=== PATIENT | female | born 1990 | race American Indian/Alaskan Native ===

== ENCOUNTER 2017-02-15 03:42 | Day surgery (SDC) | payer OTHER ==
[2017-02-15 03:48] VITALS: BMI 32.2
[2017-02-15] MEDS ORDERED: Sodium Chloride 0.9% 1,000 ML IV STA (03:59)
[2017-02-15] MEDS ORDERED: Morphine 2 mg/ml ISec IVP STA (03:59)
--- NOTE | 2017-02-15 04:03 | ED PDOC ---
Arrival/HPI <Antione Prajapati - Last Filed: 02/15/17 15:09> - General Historian: Patient - History of Present Illness Time/Duration: 4-6 hours Symptom Onset: Gradual Symptom Course: Unchanged Severity Level: Mild Activities at Onset: Light <Melinda Wild - Last Filed: 02/19/17 11:08> - General Chief Complaint: Abdominal Pain Time Seen by Provider: 02/15/17 03:50 - History of Present Illness Narrative History of Present Illness (Text): 02/15/17 03:59 Demi Argueta is a 26 year old female, with a history of asthma, presents to the emergency department complaining of diffuse abdominal pain associated with multiple bouts of vomiting and chills since 11 pm last night. States that pain radiates to the R flank area. Patient ate dinner at 7 p.m which consisted of rice and oxtail. Denies any fever, chills, headache, dizziness, difficulty breathing, diarrhea, or any other complaints at this time. (Melinda Wild) Past Medical History - Provider Review Nursing Documentation Reviewed: Yes - Infectious Disease Hx of Infectious Diseases: None - Pulmonary Hx Asthma: Yes - Psychiatric Hx Substance Use: No - Anesthesia Hx Anesthesia: No <Melinda Wild - Last Filed: 02/19/17 11:08> Family/Social History - Physician Review Nursing Documentation Reviewed: Yes Family/Social History: No Known Family HX Smoking Status: Never Smoked Hx Alcohol Use: No Hx Substance Use: No <Melinda Wild - Last Filed: 02/19/17 11:08> Allergies/Home Meds <Antione Prajapati - Last Filed: 02/15/17 15:09> <Melinda Wild - Last Filed: 02/19/17 11:08> Allergies/Adverse Reactions: Allergies No Known Allergies Allergy (Unverified 02/15/17 03:59) Home Medications: Home Meds Medication Instructions Recorded Confirmed Ethinyl Estradiol/Drospirenone 1 tab PO DAILY 02/15/17 02/15/17 [Vestura 3 mg-0.02 mg] Review of Systems - Physician Review All systems were reviewed & negative as marked: Yes - Review of Systems Constitutional: Normal. absent: Fatigue, Fevers Respiratory: Normal. absent: SOB, Cough, Sputum Cardiovascular: Normal. absent: Chest Pain Gastrointestinal: Abdominal Pain, Nausea, Vomiting. absent: Diarrhea Genitourinary Female: Normal. absent: Dysuria Musculoskeletal: Back Pain (R side) Neurological: Normal. absent: Headache, Dizziness Psychiatric: Normal <Melinda Wild Last Filed: 02/19/17 11:08> Physical Exam Vital Signs Reviewed: Yes Temperature: Afebrile Blood Pressure: Normal Pulse: Regular Respiratory Rate: Normal Appearance: Positive for: Non-Toxic, Uncomfortable (due to pain) Pain Distress: Moderate Mental Status: Positive for: Alert and Oriented X 3 - Systems Exam Head: Present: Atraumatic, Normocephalic Pupils: Present: PERRL Conjunctiva: Present: Other (mild conjunctival pallor ) Mouth: Present: Moist Mucous Membranes. No: Dry Pharnyx: Present: Normal. No: ERYTHEMA, EXUDATE, TONSILS ENLARGED Respiratory/Chest: Present: Clear to Auscultation, Good Air Exchange. No: Respiratory Distress, Accessory Muscle Use Cardiovascular: Present: Regular Rate and Rhythm, Normal S1, S2. No: Murmurs Abdomen: Present: Tenderness (tender to palpation RUQ>RLQ), Normal Bowel Sounds. No: Distention, Peritoneal Signs Back: Present: Normal Inspection. No: CVA Tenderness, Midline Tenderness, Paraspinal Tenderness Neurological: Present: GCS=15, CN II-XII Intact, Speech Normal Skin: Present: Warm, Dry, Normal Color. No: Rashes Psychiatric: Present: Alert, Oriented x 3, Normal Insight, Normal Concentration <Melinda Wild - Last Filed: 02/19/17 11:08> Vital Signs Temp Pulse Resp BP Pulse Ox 02/15/17 15:01 97.8 F 52 L 18 123/71 98 02/15/17 10:01 50 L 16 109/63 100 02/15/17 06:40 54 L 16 115/39 L 100 02/15/17 05:10 16 02/15/17 04:40 97.6 F 52 L 18 118/73 100 02/15/17 03:55 59 L 16 135/55 L 100 Medical Decision Making <Antione Prajapati L - Last Filed: 02/15/17 15:09> <Melinda Wild - Last Filed: 02/19/17 11:08> ED Course and Treatment: 02/15/17 04:08 Impression: A 26 year old female who presents to the emergency department complaining of abdominal pain associated with nausea and vomiting since 11 pm. Differential Diagnosis include but are not limited to: Gastritis vs. gastroenteritis vs. Cholecystitis. Plan: -- Labs, Lipase -- Pepcid -- Morphine -- Zofran -- IV fluids -- HCG -- Urinalysis -- Reassess and disposition Progress Notes: 02/15/17 04:10 (Melinda Wild) - Lab Interpretations Lab Results: 02/16/17 07:45 02/16/17 07:45 Lab Results 02/16/17 07:45: Sodium 137, Potassium 3.8, Chloride 107, Carbon Dioxide 23, Anion Gap 11, BUN 8, Creatinine 0.7, Est GFR ( Amer) > 60, Est GFR (Non- Af Amer) > 60, Random Glucose 88, Calcium 8.7, Total Bilirubin 0.5, AST 75 H, ALT 96 H, Alkaline Phosphatase 91, Total Protein 6.8, Albumin 3.2, Globulin 3.6 , Albumin/Globulin Ratio 0.9 L 02/16/17 07:45: APTT 26.8 02/16/17 07:45: WBC 7.2, RBC 4.58, Hgb 9.8 L, Hct 29.3 L, MCV 64.0 L, MCH 21.4 L , MCHC 33.4, RDW 15.3 H, Plt Count 219, MPV 9.8, Gran % 65.4, Lymph % (Auto) 28.5, [place] % (Auto) 5.7, Eos % (Auto) 0.1 L, Baso % (Auto) 0.3, Gran # 4.69, Lymph # 2.0, [place] # 0.4, Eos # 0.0, Baso # 0.02 02/15/17 04:30: WBC 6.1, RBC 5.17, Hgb 11.1 L, Hct 33.0 L, MCV 63.8 L, MCH 21.5 L, MCHC 33.6, RDW 15.8 H, Plt Count 236, MPV 11.2 H, Gran % 68.3 H, Lymph % ( Auto) 26.6, [place] % (Auto) 3.6, Eos % (Auto) 1.0 L, Baso % (Auto) 0.5, Gran # 4.14, Lymph # 1.6, [place] # 0.2, Eos # 0.1, Baso # 0.03 02/15/17 04:30: Sodium 136, Potassium 4.5, Chloride 105, Carbon Dioxide 23, Anion Gap 13, BUN 14, Creatinine 0.7, Est GFR ( Amer) > 60, Est GFR (Non- Af Amer) > 60, Random Glucose 150 H, Calcium 9.5, Total Bilirubin 0.6, AST 55 H , ALT 69 H, Alkaline Phosphatase 103, Total Protein 8.1, Albumin 4.2, Globulin 4.0, Albumin/Globulin Ratio 1.1, Amylase 162 H, Lipase 72 02/15/17 04:30: PT 10.7, INR 0.99, APTT 26.3 02/15/17 03:40: Urine Color Yellow, Urine Appearance Sl cloudy, Urine pH 5.5, Ur Specific [place] >= 1.030, Urine Protein 30 H, Urine Glucose (UA) Negative, Urine Ketones Negative, Urine Blood Moderate H, Urine Nitrate Negative, Urine Bilirubin Negative, Urine Urobilinogen 0.2, Ur Leukocyte Esterase Negative, Urine RBC 5 - 10, Urine WBC 0 - 2, Ur Epithelial Cells 1 - 3, Urine Bacteria Mod , Urine HCG, Qual Negative - RAD Interpretation Radiology Orders: 02/15/17 05:04 ABD & PELVIS W/O PO OR IV CONT [CT] Stat 02/15/17 06:12 ABDOMEN COMPLETE [US] Stat 02/15/17 07:18 BILIARY SCAN (HIDA) [NM] Stat 02/15/17 16:49 CHOLANGIOGRAM OPERATIVE [RAD] Routine - Medication Orders Current Medication Orders: Discontinued Medications Acetaminophen (Tylenol 325mg Tab) 650 mg PO Q6H PRN PRN Reason: Pain, Mild (1-3) Bupivacaine HCl (Marcaine 0.5%) Confirm Administered Dose 30 ml .ROUTE .STK-MED ONE Stop: 02/15/17 16:37 Last Admin: 02/15/17 16:47 Dose: 19 ml Bupivacaine HCl (Marcaine 0.5%) Confirm Administered Dose 30 ml .ROUTE .STK-MED ONE Stop: 02/15/17 15:19 Cefazolin Sodium (Ancef) Confirm Administered Dose 1 gm .ROUTE .STK-MED ONE Stop: 02/15/17 16:37 Last Admin: 02/15/17 16:40 Dose: 2 gm Cefazolin Sodium (Ancef) Confirm Administered Dose 1 gm .ROUTE .STK-MED ONE Stop: 02/15/17 16:37 Cefazolin Sodium (Ancef) Confirm Administered Dose 1 gm .ROUTE .STK-MED ONE Stop: 02/15/17 15:19 Famotidine (Pepcid) 20 mg IVP STAT STA Stop: 02/15/17 04:00 Last Admin: 02/15/17 04:34 Dose: 20 mg Fentanyl (Fentanyl) Confirm Administered Dose 100 mcg .ROUTE .STK-MED ONE Stop: 02/15/17 16:31 Fentanyl (Fentanyl) Confirm Administered Dose 100 mcg .ROUTE .STK-MED ONE Stop: 02/15/17 17:49 Glycopyrrolate (Robinul) Confirm Administered Dose 0.2 mg .ROUTE .STK-MED ONE Stop: 02/15/17 17:26 Glycopyrrolate (Robinul) Confirm Administered Dose 0.2 mg .ROUTE .STK-MED ONE Stop: 02/15/17 17:26 Heparin Sodium (Porcine) (Heparin) 5,000 units SC Q12 MARY LOU PRN Reason: Protocol Last Admin: 02/16/17 10:27 Dose: 5,000 units Hydromorphone HCl (Dilaudid) 0.5 mg IVP Q4H PRN PRN Reason: Pain, severe (8-10) Last Admin: 02/15/17 20:01 Dose: 0.5 mg Re-Assess: CHRISTOPHE Pain Assessment Document 02/15/17 21:01 SD (Rec: 02/15/17 21:12 SD [email or web address]) Pain Reassessment Is this a pain reassessment? Yes Sleep Is patient sleeping during reassessment? No Presence of Pain Presence of Pain No Pain Scale Used Pain Scale Used Numeric Sodium Chloride (Sodium Chloride 0.9%) 1,000 mls @ 999 mls/hr IV .Q1H1M STA Stop: 02/15/17 04:59 Last Admin: 02/15/17 04:30 Dose: 999 mls/hr Metronidazole (Flagyl) 500 mg in 100 mls @ 100 mls/hr IVPB STAT STA PRN Reason: Protocol Stop: 02/15/17 07:11 Last Admin: 02/15/17 07:18 Dose: 100 mls/hr Ceftriaxone Sodium (Rocephin 1 Gram Ivpb) 1 gm in 100 mls @ 200 mls/hr IV ONCE STA PRN Reason: Protocol Stop: 02/15/17 06:40 Last Admin: 02/15/17 06:27 Dose: 200 mls/hr Lactated Ringer's (Lactated Ringer's) 1,000 mls @ 75 mls/hr IV .[id number] MARY LOU Stop: 02/15/17 18:00 Sodium Chloride (Sodium Chloride 0.9%) 1,000 mls @ 100 mls/hr IV .Q10H [facility] Stop: 02/16/17 12:00 Last Admin: 02/15/17 20:30 Dose: 100 mls/hr Iohexol (Omnipaque 240 (50 Ml)) Confirm Administered Dose 50 ml .ROUTE .STK-MED ONE Stop: 02/15/17 16:37 Last Admin: 02/15/17 17:17 Dose: 10 ml Iohexol (Omnipaque 240 (50 Ml)) Confirm Administered Dose 50 ml .ROUTE .STK-MED ONE Stop: 02/15/17 15:19 Ketorolac Tromethamine (Toradol) 30 mg IVP STAT STA Stop: 02/15/17 05:06 Last Admin: 02/15/17 05:06 Dose: 30 mg Re-Assess: CHRISTOPHE Pain Assessment Document 02/15/17 06:06 YP (Rec: 02/15/17 06:16 YP [id number]) Pain Reassessment Is this a pain reassessment? Yes Sleep Is patient sleeping during reassessment? No Presence of Pain Presence of Pain No Levalbuterol HCl (Xopenex) Confirm Administered Dose 1.25 mg .ROUTE .STK-MED ONE Stop: 02/15/17 18:23 Levalbuterol HCl (Xopenex) 0.63 mg IH T5HCPOC PRN PRN Reason: Shortness of Breath Last Admin: 02/16/17 12:26 Dose: 0.63 mg Lidocaine (Lidocaine (Bolus)) Confirm Administered Dose 100 mg IV .STK-MED ONE Stop: 02/15/17 16:31 Metoclopramide HCl (Reglan) 10 mg IV ONCE PRN PRN Reason: Nausea/Vomiting Midazolam HCl (Versed Inj) Confirm Administered Dose 2 mg .ROUTE .STK-MED ONE Stop: 02/15/17 16:31 Morphine Sulfate (Morphine) 2 mg IVP STAT STA Stop: 02/15/17 04:00 Last Admin: 02/15/17 04:31 Dose: 2 mg Re-Assess: [facility] Pain Assessment Document 02/15/17 05:31 YP (Rec: 02/15/17 06:16 YP [id number]) Pain Reassessment Is this a pain reassessment? Yes Sleep Is patient sleeping during reassessment? No Presence of Pain Presence of Pain No Morphine Sulfate (Morphine) 4 mg IVP STAT STA Stop: 02/15/17 11:01 Last Admin: 02/15/17 11:07 Dose: 4 mg Morphine Sulfate (Morphine) 2 mg IVP Q15M PRN PRN Reason: Pain, moderate (4-7) Last Admin: 02/16/17 05:31 Dose: 2 mg Re-Assess: [facility] Pain Assessment Document 02/16/17 06:31 SD (Rec: 02/16/17 07:00 SD [email or web address]) Pain Reassessment Is this a pain reassessment? Yes Sleep Is patient sleeping during reassessment? Yes Neostigmine Methylsulfate (Neostigmine Methylsulfate) Confirm Administered Dose 3 mg IV .STK-MED ONE Stop: 02/15/17 17:37 Ondansetron HCl (Zofran Inj) 4 mg IVP STAT STA Stop: 02/15/17 04:00 Last Admin: 02/15/17 04:30 Dose: 4 mg Ondansetron HCl (Zofran Inj) 4 mg IVP ONCE PRN PRN Reason: Nausea/Vomiting Ondansetron HCl (Zofran Inj) Confirm Administered Dose 8 mg .ROUTE .STK-MED ONE Stop: 02/15/17 16:32 Oxycodone/Acetaminophen (Percocet 5/325 Mg Tab) 1 tab PO Q4H PRN PRN Reason: Pain, moderate (4-7) Stop: 02/18/17 18:17 Last Admin: 02/15/17 19:10 Dose: 1 tab Re-Assess: [facility] Pain Assessment Document 02/15/17 20:10 SD (Rec: 02/15/17 21:12 SD [email or web address]) Pain Reassessment Is this a pain reassessment? Yes Sleep Is patient sleeping during reassessment? No Presence of Pain Presence of Pain No Pain Scale Used Pain Scale Used Numeric Oxycodone/Acetaminophen (Percocet 5/325 Mg Tab) Confirm Administered Dose 1 tab .ROUTE .STK-MED ONE Stop: 02/15/17 19:10 Pantoprazole Sodium (Protonix Ec Tab) 40 mg PO 0630 MARY LOU Last Admin: 02/16/17 05:34 Dose: 40 mg Pneumococcal Polyvalent Vaccine (Pneumovax 23 Vaccine) 0.5 ml IM .ONCE ONE Stop: 02/15/17 22:19 Propofol (Diprivan) Confirm Administered Dose 400 mg .ROUTE .STK-MED ONE Stop: 02/15/17 16:31 Rocuronium [place] (Zemuron) Confirm Administered Dose 50 mg .ROUTE .STK-MED ONE Stop: 02/15/17 16:31 ED OBSERVATION <Antione Prajapati - Last Filed: 02/15/17 15:09> Date of observation admission: 02/15/17 Time of observation admission: 03:50 <Melinda Wild - Last Filed: 02/19/17 11:08> - Observation admission statement Patient is being placed in observation because:: Abdominal pain (Melinda Wild) - Goals of Observation Goals of observation are:: Pending Labs, imaging, reevaluation and disposition (Melinda Wild) - Progress Note Progress Note: 02/15/17 07:15 Case signed out to me from overnight by Dr. Wild, pending imaging, reevaluation and disposition. 02/15/17 08:00 Patient resting in bed comfortable, awaiting scan. 02/15/17 10:10 On reevaluation, the patient states currently her pain in controlled. Abdominal examination remains unchanged. Patient will get HIDA scan at noon. 02/15/17 11:00 On reevaluation, the patient is complaining of pain, will give Morphine 4mg. 02/15/17 14:[address] Kurtz who will come to evaluate patient. Case discussed with the surgical tech who will come and evaluate patient. 02/15/17 15:09 Patient was seen and evaluated by Dr. Hutson who will take her to [facility]. Patient was admitted under his service. (Antione Prajapati) 02/15/17 05:05 On reevaluation, patient states pain has not improved. Will order Toradol 02/15/17 05:30 EXAM: CT Abdomen and Pelvis Without Intravenous Contrast FINDINGS: Lower thorax: No acute findings. ABDOMEN: Liver: Unremarkable. Gallbladder and bile ducts: Unremarkable. No calcified stones. No ductal dilation. Pancreas: Unremarkable. No ductal dilation. Spleen: Unremarkable. No splenomegaly. Adrenals: Unremarkable. No mass. Kidneys and ureters: Unremarkable. No obstructing stones. No hydronephrosis. Stomach and bowel: Much of the colon this collapsed or contracted. Question of slight colonic wall thickening beginning in the transverse colon No obstruction. Appendix: Question of partial visualization of a normal appendix. PELVIS: Bladder: Unremarkable. No stones. Reproductive: Unremarkable as visualized. ABDOMEN and PELVIS: Intraperitoneal space: Trace fluid in the pelvis consistent with physiologic amount. No free air. Bones/joints: No acute fracture. No dislocation. Soft tissues: Unremarkable. Vasculature: Unremarkable. No abdominal aortic aneurysm. Lymph nodes: Unremarkable. No enlarged lymph nodes. IMPRESSION: 1. Much of the colon is collapsed or contracted. There is question of minimal nonspecific colitis extending distal to to the proximal transverse colon. 2. Otherwise negative CT abdomen/pelvis. No renal or ureteral calculi are evident and there is no evidence of obstructive uropathy. 02/15/17 06:10 Patient is reporting improvement in pain. She still has tenderness, mainly in the RUQ. CT negative. Will obtain sono of the abdomen to r/o cholecystitis. Will give her antibiotics for colitis, based on CT reading. 02/15/17 07:16 Prelim sono result is read as gallstones with ttp in the RUQ - will need additional workup - endorsed to Dr. Prajapati. 02/15/17 07:18 HIDA scan ordered. (Melinda Wild) <Antione Prajapati - Last Filed: 02/15/17 15:09> - Scribe Statement The provider has reviewed the documentation as recorded by the Scribe <Melinda Wild - Last Filed: 02/19/17 11:08> - Scribe Statement Aly Pineda (Melinda Wild) Provider Attestation: All medical record entries made by the Scribe were at my direction and personally dictated by me. I have reviewed the chart and agree that the record accurately reflects my personal performance of the history, physical exam, medical decision making, and the department course for this patient. I have also personally directed, reviewed, and agree with the discharge instructions and disposition. (Melinda Wild) Disposition/Present on Arrival - Present on Arrival Any Indicators Present on Arrival: No - Disposition Have Diagnosis and Disposition been Completed?: Yes Disposition Time: 15:10 Patient Plan: Admission <Antione Prajapati - Last Filed: 02/15/17 15:09> - Present on Arrival History of DVT/PE: No History of Uncontrolled Diabetes: No Urinary Catheter: No History of Decub. Ulcer: No History Surgical Site Infection Following: None <Melinda Wild - Last Filed: 02/19/17 11:08> - Disposition Diagnosis: Cholecystitis Disposition: HOSPITALIZED Condition: STABLE
[2017-02-15 04:34] LABS: PH,URINE 5.5 (4.7-8.0); URINE BILIRUBIN NEGATIVE (NEGATIVE); URINE BLOOD MODERATE (NEGATIVE); URINE GLUCOSE (UA) NEGATIVE (NEGATIVE); URINE KETONE NEGATIVE (NEGATIVE); URINE LEUKOCYTE ESTERASE NEGATIVE Leu/uL (NEGATIVE); URINE PROTEIN 30 mg/dL (<30 mg/dL); URINE UROBILINOGEN 0.2 E.U./dL (<1 E.U./dL)
[2017-02-15 04:46] LABS: URINE APPEARANCE SL CLOUDY (CLEAR); URINE COLOR YELLOW (YELLOW)
[2017-02-15 04:51] LABS: URINE WBC 0 - 2 /hpf (0-6)
[2017-02-15 04:51] LABS: ADD MANUAL DIFF? NO
[2017-02-15 04:52] LABS: URINE BACTERIA MOD (NEG)
[2017-02-15 05:01] LABS: INR 0.99 (0.93-1.08); MEAN CELL VOLUME 63.8 fL (80.0-105.0); PARTIAL THROMBOPLASTIN TIME 26.3 Seconds (23.7-30.8); WHITE BLOOD COUNT 6.1 10^3/ul (4.5-11.0)
[2017-02-15 05:02] LABS: BASO # 0.03 K/mm3 (0.0-2.0); BASO % 0.5 % (0.0-3.0); EOS # 0.1 (0.0-0.7); GRAN # 4.14 (1.4-6.5); GRAN % 68.3 % (50.0-68.0); LYMPH # 1.6 (1.2-3.4); LYMPH % 26.6 % (22.0-35.0); MEAN CORPUSCULAR HEMOGLOBIN 21.5 pg (25.0-35.0); MEAN CORPUSCULAR HGB CONC 33.6 g/dl (31.0-37.0); MEAN PLATELET VOLUME 11.2 fl (7.0-11.0); MONO # 0.2 (0.1-0.6); MONO % 3.6 % (1.0-6.0); PLATELET COUNT 236 10^3/uL (120.0-450.0); RED CELL DISTRIBUTION WIDTH 15.8 % (11.5-14.5)
[2017-02-15 05:06] LABS: ALB/GLOB RATIO 1.1 (1.1-1.8); ALKALINE PHOSPHATASE 103 U/L (38-133); ALT/SGPT 69 U/L (7-56); AMYLASE 162 U/L (35-125); AST/SGOT 55 U/L (15-39); BILIRUBIN,TOTAL 0.6 mg/dL (0.2-1.3); BLOOD UREA NITROGEN 14 mg/dL (7-21); CALCIUM 9.5 mg/dL (8.4-10.5); CARBON DIOXIDE 23 mmol/L (21-33); CHLORIDE 105 mmol/L (98-107); GFR AFRICAN-AMERICAN > 60; GLUCOSE,RANDOM 150 mg/dL (70-110); LIPASE 72 U/L (23-300); POTASSIUM 4.5 mmol/L (3.6-5.0); SODIUM 136 mmol/L (132-148); TOTAL PROTEIN 8.1 g/dL (5.8-8.3)
[2017-02-15] MEDS ORDERED: cefTRIAXone 1 gm 1 GM/100 ML BAG IV STA (06:11)
[2017-02-15] MEDS ORDERED: metroNIDAZOLE IV 500 mg/100 ml 500 MG/100 ML BAG IVPB STA (06:12)
--- NOTE | 2017-02-15 09:40 | CT ---
PROCEDURE: CT Abdomen and Pelvis without intravenous contrast HISTORY: abd pain; R flank pain COMPARISON: None. TECHNIQUE: Without contrast. Contrast Dose: Radiation dose: Total exam DLP = 751 mGy-cm. This CT exam was performed using one or more of the following dose reduction techniques: Automated exposure control, adjustment of the mA and/or kV according to patient size, and/or use of iterative reconstruction technique. FINDINGS: LOWER THORAX: Unremarkable. LIVER: Unremarkable. No gross lesion or ductal dilatation. GALLBLADDER AND BILE DUCTS: Unremarkable. PANCREAS: Unremarkable. No gross lesion or ductal dilatation. SPLEEN: Unremarkable. ADRENALS: Unremarkable. No mass. KIDNEYS AND URETERS: Unremarkable. No hydronephrosis. No solid mass. VASCULATURE: Unremarkable. No aortic aneurysm. BOWEL: Unremarkable. No obstruction. No gross mural thickening. APPENDIX: Unremarkable. Normal appendix. PERITONEUM: Minimal free fluid LYMPH NODES: Unremarkable. No enlarged lymph nodes. BLADDER: Unremarkable. REPRODUCTIVE: Unremarkable. BONES: No acute fracture. OTHER FINDINGS: The report concurs with the preliminary [facility] report IMPRESSION: No acute findings
--- NOTE | 2017-02-15 09:57 | US ---
HISTORY: upper abd pain - r/o cholecystitis COMPARISON: CT abdomen and pelvis performed the same day TECHNIQUE: Sonographic evaluation of the abdomen. FINDINGS: LIVER: Measures 15.6 cm. Normal echogenicity of the liver parenchyma. No mass. No intrahepatic bile duct dilatation. GALLBLADDER: There are multiple gallstones. No wall thickening, pericholecystic fluid or positive sonographic Lama's sign. COMMON BILE DUCT: Measures 5.0 mm. No stones. No dilatation. PANCREAS: Unremarkable as visualized. No mass. No ductal dilatation. RIGHT KIDNEY: Measures 11.0cm. Normal echogenicity. No calculus, mass, or hydronephrosis. LEFT KIDNEY: Measures 11.0cm. Normal echogenicity. No calculus, mass, or hydronephrosis. SPLEEN: Normal in size and contour. No mass. AORTA: No aneurysmal dilatation. IVC: Unremarkable. OTHER FINDINGS: None. IMPRESSION: Cholelithiasis. No evidence of acute cholecystitis.
[2017-02-15] MEDS ORDERED: Morphine 4 mg/ml ISec IVP STA (11:00)
--- NOTE | 2017-02-15 12:14 | NM ---
PROCEDURE: Nuclear Medicine Hepatobiliary Scan HISTORY: gallstones; RUQ pain - r/o cholecystitis COMPARISON: None available. TECHNIQUE: 5.2 mCi of technetium 99m Mebrofenin was administered intravenously. Planar images of the abdomen were obtained at 5 min intervals to 60 mins. Delayed images were also obtained. FINDINGS: LIVER: Timely and homogenous uptake. COMMON BILE DUCT: identified at 30 mins. GALLBLADDER: Not visualized even on 4 hour delayed images SMALL BOWEL: Identified at 60 mins. IMPRESSION: Nonvisualization of the gallbladder consistent with cystic duct obstruction
--- NOTE | 2017-02-15 14:21 | CP.PCM.CON ---
<Elly Collado - Last Filed: 02/15/17 15:22> History of Present Illness - History of Present Illness History of Present Illness: General Surgery Dr. Kurtz HPI: 26 y/o F w/ PMHx of asthma presents to the ED w/ CC of RUQ abd pain. Pain began around 11pm after dinner of oxtail, rice, and beans. Pt has never before had this pain. Low throbbing pain is constant w/ waves of increasing intensity. During intense waves, pain radiates to back and R shoulder. Pt reports NBNB vomiting x3 shortly after pain began. Vomiting made abd pain worse. Heating pad and meds given in ED made pain better. Pt admits to nausea which comes in waves , dizziness which began after vomiting, and weakness which pt attributes to lack of PO intake and no sleep. Denies F/C, SOB, CP, D/C. PMHx: asthma, obese Meds: reviewed NKDA PSHx: denies SHx: denies Tobacco, drug use. occasional EtOH use FHx: diabetes - mother Review of Systems - Review of Systems All systems: reviewed and no additional remarkable complaints except (see HPI) Past Patient History - Infectious Disease Hx of Infectious Diseases: None - Past Social History Smoking Status: Never Smoked - PULMONARY Hx Asthma: Yes - PSYCHIATRIC Hx Substance Use: No - SURGICAL HISTORY Hx Surgeries: No - ANESTHESIA Hx Anesthesia: No Meds Allergies/Adverse Reactions: Allergies Allergy/AdvReac Type Severity Reaction Status Date / Time No Known Allergies Allergy Unverified 02/15/17 03:59 Physical Exam - Constitutional Appears: Non-toxic, No Acute Distress - Head Exam Head Exam: NORMAL INSPECTION - Eye Exam Eye Exam: Normal appearance - ENT Exam ENT Exam: Mucous Membranes Moist - Respiratory Exam Respiratory Exam: Clear to Auscultation Bilateral, NORMAL BREATHING PATTERN. absent: Accessory Muscle Use, Respiratory Distress - Cardiovascular Exam Cardiovascular Exam: REGULAR RHYTHM. absent: Bradycardia, Tachycardia - GI/Abdominal Exam GI & Abdominal Exam: Diminished Bowel Sounds, Guarding (voluntary), Soft, Tenderness (TTP RUQ). absent: Distended, Firm, Rebound - Extremities Exam Extremities exam: Positive for: normal inspection. Negative for: pedal edema, tenderness - Neurological Exam Neurological exam: Alert, Oriented x3 - Psychiatric Exam Psychiatric exam: Normal Affect, Normal Mood - Skin Skin Exam: Dry, Intact, Normal Color, Warm Results - Vital Signs Recent Vital Signs: Last Vital Signs Temp 97.6 F 02/15/17 04:40 Pulse 50 L 02/15/17 10:01 Resp 16 02/15/17 10:01 BP 109/63 02/15/17 10:01 Pulse Ox 100 02/15/17 10:01 - Labs Result Diagrams: 02/15/17 04:30 02/15/17 04:30 Labs: Laboratory Results - last 24 hr 02/15/17 02/15/17 02/15/17 04:30 04:30 04:30 WBC 6.1 RBC 5.17 Hgb 11.1 L Hct 33.0 L MCV 63.8 L MCH 21.5 L MCHC 33.6 RDW 15.8 H Plt Count 236 MPV 11.2 H Gran % 68.3 H Lymph % (Auto) 26.6 [place] % (Auto) 3.6 Eos % (Auto) 1.0 L Baso % (Auto) 0.5 Gran # 4.14 Lymph # 1.6 [place] # 0.2 Eos # 0.1 Baso # 0.03 PT 10.7 INR 0.99 APTT 26.3 Sodium 136 Potassium 4.5 Chloride 105 Carbon Dioxide 23 Anion Gap 13 BUN 14 Creatinine 0.7 Est GFR ( Amer) > 60 Est GFR (Non-Af Amer) > 60 Random Glucose 150 H Calcium 9.5 Total Bilirubin 0.6 AST 55 H ALT 69 H Alkaline Phosphatase 103 Total Protein 8.1 Albumin 4.2 Globulin 4.0 Albumin/Globulin Ratio 1.1 Amylase 162 H Lipase 72 - Imaging and Cardiology US - abdomen Status: Image reviewed by me, Report reviewed by me CT scan - abdomen Status: Image reviewed by me, Report reviewed by me HIDA Status: Image reviewed by me, Report reviewed by me Assessment & Plan - Assessment and Plan (Free Text) Assessment: 26 y/o F w/ RUQ pain likely 2/2 biliary cholic vs acute cholecystitis - NPO, IVF - pain management - anti-emetic - OR today for lap samson w/ IOC Pt seen and discussed w/ Dr. Tessie Collado DO PGY1 <Darrin Kurtz - Last Filed: 02/21/17 12:44> Results - Vital Signs Recent Vital Signs: Last Vital Signs Temp 98.8 F 02/16/17 12:12 Pulse 56 L 02/16/17 12:12 Resp 19 02/16/17 12:12 BP 118/80 02/16/17 12:12 Pulse Ox 97 02/16/17 12:12 - Labs Result Diagrams: 02/16/17 07:45 02/16/17 07:45 Assessment & Plan - Assessment and Plan (Free Text) Assessment: Patient was seen and examined by me. I agree with assessment and plan as per resident's note. - Date & Time Date: 02/15/17 Time: 16:20
[2017-02-15] MEDS ORDERED: Bupivacaine 0.5% Inj(30mL) ONE ×2 (15:18→16:36)
[2017-02-15] MEDS ORDERED: Iohexol 240 (50 ml) ONE ×2 (15:18→16:36)
[2017-02-15] MEDS ORDERED: Morphine 2 mg/ml ISec IVP PRN (15:59)
[2017-02-15] MEDS ORDERED: Lactated Ringer's 1,000 ML IV SCH (15:59)
[2017-02-15] MEDS ORDERED: Rocuronium 10 mg/ml (5 ml) ONE (16:30)
[2017-02-15] MEDS ORDERED: Midazolam 2 MG/2 ML VIAL ONE (16:30)
[2017-02-15] MEDS ORDERED: Propofol 10 mg/ml Inj (20 ML) ONE (16:30)
[2017-02-15] MEDS ORDERED: Glycopyrrolate 0.2 mg/ml (2ml vial) ONE (17:25)
[2017-02-15] MEDS ORDERED: Neostigmine Methylsulfate 3mg/3ml Syringe IV ONE (17:36)
[2017-02-15] MEDS ORDERED: HYDROmorphone 0.5 mg/0.5 ml ISec IVP PRN (18:12)
[2017-02-15] MEDS ORDERED: Oxycodone/Acetaminophen 5/325 mg Tab PO PRN (18:16)
[2017-02-15] MEDS ORDERED: Levalbuterol 1.25 MG/3 ML Inhal Soln UD ONE (18:22)
[2017-02-15] MEDS ORDERED: Levalbuterol 0.63 MG/3 ML Inhal Soln UD IH PRN (18:35)
--- NOTE | 2017-02-15 18:38 | PCM.SURG1 ---
Surgeon's Initial Post Op Note - Surgeon's Notes Surgeon: Dr. Kurtz Industrial Laborer: Dr. Ruiz PGY2, Dr. Collado PGY1 Type of Anesthesia: General Endo Pre-Operative Diagnosis: acute cholecystitis Operative Findings: see dictation Post-Operative Diagnosis: same Operation Performed: laparoscopic cholecystectomy w/ IOC Specimen/Specimens Removed: gallbladder Estimated Blood Loss: EBL {In ML}: 5 Post-Op Condition: Good Date of Surgery/Procedure: 02/15/17 Time of Surgery/Procedure: 16:45
--- NOTE | 2017-02-15 18:45 | OP ---
PROCEDURE DATE: 02/15/2017 PREOPERATIVE DIAGNOSES: Acute cholecystitis, cholelithiasis. POSTOPERATIVE DIAGNOSES: Acute cholecystitis, cholelithiasis. PROCEDURE PERFORMED: Laparoscopic cholecystectomy with intraoperative cholangiogram. SURGEON: Dr. Kurtz. AUTO EMISSIONS TECHNICIAN: Dr. Ruiz, Dr. Cavanaugh. ANESTHESIOLOGIST: Dr. Santos. ANESTHESIA: General endotracheal anesthesia. ESTIMATED BLOOD LOSS: Minimal. SPECIMEN: Gallbladder with gallstones. INDICATION: The patient is a 26-year-old female with history of acute right upper quadrant abdominal pain starting last night, came into the Emergency Room with slightly elevated liver function tests, right upper quadrant abdominal pain. Ultrasound showing cholelithiasis and a HIDA scan positive for cystic duct obstruction. The patient was taken to the operating room for laparoscopic cholecystectom y. DESCRIPTION OF PROCEDURE: The patient was brought to the operating room and placed on the operating table in supine position. The patient was connected to EKG, blood pressure and pulse oximeter monito rs. The patient then underwent general endotracheal anesthesia, was prepped and draped in usual ster ile fashion. First, timeout procedure took place and everybody in the room agreed as to this patient's identity, d iagnosis and procedure to be performed. Using 2 towel clips, the anterior abdominal wall was elevated and a Veress needle was inserted throug h a small incision superior to the umbilicus. Once hemoperitoneum was obtained, 12 mm trocar was ins erted through the incision. Careful evaluation of abdominal cavity began with the scope. This revea led presence of a distended gallbladder with some wall thickening and the remaining portion of the ab dominal cavity appeared to be within normal limits. All the structures including bowel, colon and st omach that were visible appeared to be within normal limits. A second 5 mm trocar was inserted throu gh the subxiphoid position and then the gallbladder, which was very distended, was drained using a la paroscopic needle. Once drained from clear bile, which was fairly light in color, we were able to gr ab the gallbladder and then proceeded with dissection. First, the infundibulum of the gallbladder wa s grabbed and pulled laterally and a careful dissection started where the peritoneum was stripped and the cystic duct was exposed. The cystic artery, which was directly behind it, was also visible. Cy stic duct was then clipped proximally and a small incision was made on the side of it in order to acc ess the cystic duct. The cholangiocatheter was inserted through the 5 mm port and a cholangiogram wa s obtained under direct visualization of fluoroscopy. Once this was done, It revealed presence of pr ompt flow of dye into the entire biliary tree without any obstructions. There was no evidence of com mon bile duct stones. The cystic duct was then clipped distally after the cholangiocatheter was kenneth maddie and transected. Cystic artery, which was directly behind it, was also clipped and transected. T he gallbladder was then carefully taken off the liver bed using electrocautery. Once completely deta ched from the liver, it was placed in an EndoCatch bag and removed through the periumbilical incision . Once this was done, the abdominal cavity was again carefully evaluated, both port sites were looke d at and there was no bleeding. The ports were then removed and the fascia was closed using 0 Vicryl and the subcutaneous tissues were closed using 3-0 Vicryl and skin was closed using 4-0 [address]oc[address] S terile Dermabond dressing was applied to the wound. The patient tolerated the procedure well and wit hout complications. The patient was awakened and transferred to recovery room for further observatio n. Darrin Kurtz MD cc: [id number] TT: 02/15/2017 18:44:05 jn
[2017-02-15] MEDS ORDERED: Sodium Chloride 0.9% 1,000 ML IV SCH (19:00)
[2017-02-15] MEDS ORDERED: Oxycodone/Acetaminophen 5/325 mg Tab ONE (19:09)
--- NOTE | 2017-02-15 20:21 | CP.PCM.HP ---
Past Patient History - Infectious Disease Hx of Infectious Diseases: None - Past Social History Smoking Status: Never Smoked - PULMONARY Hx Asthma: Yes - HEMATOLOGICAL/ONCOLOGICAL Hx Blood Transfusions: No Hx Blood Transfusion Reaction: No - PSYCHIATRIC Hx Substance Use: No - SURGICAL HISTORY Hx Surgeries: No - ANESTHESIA Hx Anesthesia Reactions: No Hx Malignant Hyperthermia: No Meds Allergies/Adverse Reactions: Allergies Allergy/AdvReac Type Severity Reaction Status Date / Time No Known Allergies Allergy Unverified 02/15/17 03:59 Results - Vital Signs Recent Vital Signs: Last Vital Signs Temp 97.3 F L 02/15/17 19:38 Pulse 71 02/15/17 19:38 Resp 16 02/15/17 19:38 BP 129/72 02/15/17 19:38 Pulse Ox 100 02/15/17 19:38 - Labs Result Diagrams: 02/15/17 04:30 02/15/17 04:30 Labs: Laboratory Results - last 24 hr 02/15/17 02/15/17 02/15/17 03:40 04:30 04:30 WBC RBC Hgb Hct MCV MCH MCHC RDW Plt Count MPV Gran % Lymph % (Auto) [place] % (Auto) Eos % (Auto) Baso % (Auto) Gran # Lymph # [place] # Eos # Baso # PT 10.7 INR 0.99 APTT 26.3 Sodium 136 Potassium 4.5 Chloride 105 Carbon Dioxide 23 Anion Gap 13 BUN 14 Creatinine 0.7 Est GFR ( Amer) > 60 Est GFR (Non-Af Amer) > 60 Random Glucose 150 H Calcium 9.5 Total Bilirubin 0.6 AST 55 H ALT 69 H Alkaline Phosphatase 103 Total Protein 8.1 Albumin 4.2 Globulin 4.0 Albumin/Globulin Ratio 1.1 Amylase 162 H Lipase 72 Urine Color Yellow Urine Appearance Sl cloudy Urine pH 5.5 Ur Specific [place] >= 1.030 Urine Protein 30 H Urine Glucose (UA) Negative Urine Ketones Negative Urine Blood Moderate H Urine Nitrate Negative Urine Bilirubin Negative Urine Urobilinogen 0.2 Ur Leukocyte Esterase Negative Urine RBC 5 - 10 Urine WBC 0 - 2 Ur Epithelial Cells 1 - 3 Urine Bacteria Mod Urine HCG, Qual Negative 02/15/17 04:30 WBC 6.1 RBC 5.17 Hgb 11.1 L Hct 33.0 L MCV 63.8 L MCH 21.5 L MCHC 33.6 RDW 15.8 H Plt Count 236 MPV 11.2 H Gran % 68.3 H Lymph % (Auto) 26.6 [place] % (Auto) 3.6 Eos % (Auto) 1.0 L Baso % (Auto) 0.5 Gran # 4.14 Lymph # 1.6 [place] # 0.2 Eos # 0.1 Baso # 0.03 PT INR APTT Sodium Potassium Chloride Carbon Dioxide Anion Gap BUN Creatinine Est GFR ( Amer) Est GFR (Non-Af Amer) Random Glucose Calcium Total Bilirubin AST ALT Alkaline Phosphatase Total Protein Albumin Globulin Albumin/Globulin Ratio Amylase Lipase Urine Color Urine Appearance Urine pH Ur Specific [place] Urine Protein Urine Glucose (UA) Urine Ketones Urine Blood Urine Nitrate Urine Bilirubin Urine Urobilinogen Ur Leukocyte Esterase Urine RBC Urine WBC Ur Epithelial Cells Urine Bacteria Urine HCG, Qual
--- NOTE | 2017-02-15 20:48 | CP.PCM.HP ---
<Brandon Liz - Last Filed: 02/15/17 21:06> History of Present Illness - History of Present Illness History of Present Illness: CC: "Stomach Pain, nausea, vomiting" HPI: Pt is a 26 year old -Vincentian F with a PMHx of asthma who presented to the ED one day ago with complaints of RUQ and mid-epigastric abdominal pain, pain in her back, nausea, and 4 episodes of vomiting that began yesterday. Pt reports that she has never experienced these symptoms before. Pt reports that her emesis was non bloody. Pt seen on post-op day 0 s/p laparoscopic cholecystectomy. PT reports that she is not in pain and resting comfortably. Pt reports that she is ambulating, but has not yet had a bowel movement. Pt denies fever, chills, chest pain, shortness of breath, nausea, and vomiting. PMHx: Asthma Home medications: OCP, oral acne medications Allergies: NKDA Past Surgical Hx: denies Social Hx: denies history of tobacco, drug, and alcohol use Family Hx: Diabetes Mellitus (mother) Present on Admission - Present on Admission Any Indicators Present on Admission: No Review of Systems - Constitutional Constitutional: absent: Chills, Fever - EENT Eyes: absent: Blurred Vision Ears: absent: Dizziness Nose/Mouth/Throat: absent: Epistaxis - Cardiovascular Cardiovascular: absent: Chest Pain, Dyspnea - Respiratory Respiratory: absent: Cough, Hemoptysis - Gastrointestinal Gastrointestinal: absent: Abdominal Pain, Nausea, Vomiting - Genitourinary Genitourinary: absent: Dysuria - Musculoskeletal Musculoskeletal: absent: Back Pain - Neurological Neurological: absent: Disequilibrium, Headaches, Paresthesias - Psychiatric Psychiatric: absent: Anxiety - Hematologic/Lymphatic Hematologic: absent: Easy Bleeding Past Patient History - Infectious Disease Hx of Infectious Diseases: None - Past Social History Smoking Status: Never Smoked - PULMONARY Hx Asthma: Yes - HEMATOLOGICAL/ONCOLOGICAL Hx Blood Transfusions: No Hx Blood Transfusion Reaction: No - PSYCHIATRIC Hx Substance Use: No - SURGICAL HISTORY Hx Surgeries: No - ANESTHESIA Hx Anesthesia Reactions: No Hx Malignant Hyperthermia: No Meds Allergies/Adverse Reactions: Allergies Allergy/AdvReac Type Severity Reaction Status Date / Time No Known Allergies Allergy Unverified 02/15/17 03:59 Physical Exam - Constitutional Appears: No Acute Distress - Head Exam Head Exam: ATRAUMATIC, NORMOCEPHALIC - Eye Exam Eye Exam: EOMI, PERRL - ENT Exam ENT Exam: Mucous Membranes Moist. absent: Mucous Membranes Dry - Neck Exam Neck exam: Positive for: Full Rom. Negative for: Lymphadenopathy - Respiratory Exam Respiratory Exam: Clear to Auscultation Bilateral. absent: Rales, Rhonchi, Wheezes - Cardiovascular Exam Cardiovascular Exam: +S1, +S2. absent: Gallop, Rubs - GI/Abdominal Exam GI & Abdominal Exam: Soft, Tenderness. absent: Distended, Guarding - Extremities Exam Extremities exam: Positive for: full ROM. Negative for: pedal edema - Neurological Exam Neurological exam: Alert, Oriented x3 - Psychiatric Exam Psychiatric exam: Normal Affect, Normal Mood - Skin Skin Exam: Normal Color, Warm Results - Vital Signs Recent Vital Signs: Last Vital Signs Temp 97.3 F L 02/15/17 19:38 Pulse 71 02/15/17 19:38 Resp 16 02/15/17 19:38 BP 129/72 02/15/17 19:38 Pulse Ox 100 02/15/17 19:38 - Labs Result Diagrams: 02/15/17 04:30 02/15/17 04:30 Labs: Laboratory Results - last 24 hr 02/15/17 02/15/17 02/15/17 03:40 04:30 04:30 WBC RBC Hgb Hct MCV MCH MCHC RDW Plt Count MPV Gran % Lymph % (Auto) [place] % (Auto) Eos % (Auto) Baso % (Auto) Gran # Lymph # [place] # Eos # Baso # PT 10.7 INR 0.99 APTT 26.3 Sodium 136 Potassium 4.5 Chloride 105 Carbon Dioxide 23 Anion Gap 13 BUN 14 Creatinine 0.7 Est GFR ( Amer) > 60 Est GFR (Non-Af Amer) > 60 Random Glucose 150 H Calcium 9.5 Total Bilirubin 0.6 AST 55 H ALT 69 H Alkaline Phosphatase 103 Total Protein 8.1 Albumin 4.2 Globulin 4.0 Albumin/Globulin Ratio 1.1 Amylase 162 H Lipase 72 Urine Color Yellow Urine Appearance Sl cloudy Urine pH 5.5 Ur Specific [place] >= 1.030 Urine Protein 30 H Urine Glucose (UA) Negative Urine Ketones Negative Urine Blood Moderate H Urine Nitrate Negative Urine Bilirubin Negative Urine Urobilinogen 0.2 Ur Leukocyte Esterase Negative Urine RBC 5 - 10 Urine WBC 0 - 2 Ur Epithelial Cells 1 - 3 Urine Bacteria Mod Urine HCG, Qual Negative 02/15/17 04:30 WBC 6.1 RBC 5.17 Hgb 11.1 L Hct 33.0 L MCV 63.8 L MCH 21.5 L MCHC 33.6 RDW 15.8 H Plt Count 236 MPV 11.2 H Gran % 68.3 H Lymph % (Auto) 26.6 [place] % (Auto) 3.6 Eos % (Auto) 1.0 L Baso % (Auto) 0.5 Gran # 4.14 Lymph # 1.6 [place] # 0.2 Eos # 0.1 Baso # 0.03 PT INR APTT Sodium Potassium Chloride Carbon Dioxide Anion Gap BUN Creatinine Est GFR ( Amer) Est GFR (Non-Af Amer) Random Glucose Calcium Total Bilirubin AST ALT Alkaline Phosphatase Total Protein Albumin Globulin Albumin/Globulin Ratio Amylase Lipase Urine Color Urine Appearance Urine pH Ur Specific [place] Urine Protein Urine Glucose (UA) Urine Ketones Urine Blood Urine Nitrate Urine Bilirubin Urine Urobilinogen Ur Leukocyte Esterase Urine RBC Urine WBC Ur Epithelial Cells Urine Bacteria Urine HCG, Qual Assessment & Plan - Assessment and Plan (Free Text) Assessment: Cholelithiasis: Afebrile, nontachycardic No leukocytosis Abd/Pelvis CT - no acute findings (please see full report) Abdomen ultrasound - cholelithiasis, no evidence of cholecystitis (please see full report) HIDA scan - nonvisualization of the gallbladder consistent with cystic duct obstruction (please see full report) Surgery consulted, Dr. Smalls, help appreciated. Pt day 0 s/p laparoscopic cholecystectomy Tylenol 650 mg po q6h prn for mild pain Percocet 5/325 1 tab q4h prn for moderate pain Asthma: Xopenex 0.63 mg IH q6h prn for shortness of breath Prophylactic Measures: DVT: SCDs, Heparin 5000 units sc q12h GI: Protonix 40 mg po qd <Noel Schwartz - Last Filed: 02/15/17 22:45> Results - Vital Signs Recent Vital Signs: Last Vital Signs Temp 97.3 F L 02/15/17 22:10 Pulse 71 02/15/17 22:10 Resp 16 02/15/17 22:10 BP 129/72 02/15/17 22:10 Pulse Ox 100 02/15/17 19:38 - Labs Result Diagrams: 02/15/17 04:30 02/15/17 04:30 Labs: Laboratory Results - last 24 hr 02/15/17 02/15/17 02/15/17 03:40 04:30 04:30 WBC RBC Hgb Hct MCV MCH MCHC RDW Plt Count MPV Gran % Lymph % (Auto) [place] % (Auto) Eos % (Auto) Baso % (Auto) Gran # Lymph # [place] # Eos # Baso # PT 10.7 INR 0.99 APTT 26.3 Sodium 136 Potassium 4.5 Chloride 105 Carbon Dioxide 23 Anion Gap 13 BUN 14 Creatinine 0.7 Est GFR ( Amer) > 60 Est GFR (Non-Af Amer) > 60 Random Glucose 150 H Calcium 9.5 Total Bilirubin 0.6 AST 55 H ALT 69 H Alkaline Phosphatase 103 Total Protein 8.1 Albumin 4.2 Globulin 4.0 Albumin/Globulin Ratio 1.1 Amylase 162 H Lipase 72 Urine Color Yellow Urine Appearance Sl cloudy Urine pH 5.5 Ur Specific [place] >= 1.030 Urine Protein 30 H Urine Glucose (UA) Negative Urine Ketones Negative Urine Blood Moderate H Urine Nitrate Negative Urine Bilirubin Negative Urine Urobilinogen 0.2 Ur Leukocyte Esterase Negative Urine RBC 5 - 10 Urine WBC 0 - 2 Ur Epithelial Cells 1 - 3 Urine Bacteria Mod Urine HCG, Qual Negative 02/15/17 04:30 WBC 6.1 RBC 5.17 Hgb 11.1 L Hct 33.0 L MCV 63.8 L MCH 21.5 L MCHC 33.6 RDW 15.8 H Plt Count 236 MPV 11.2 H Gran % 68.3 H Lymph % (Auto) 26.6 [place] % (Auto) 3.6 Eos % (Auto) 1.0 L Baso % (Auto) 0.5 Gran # 4.14 Lymph # 1.6 [place] # 0.2 Eos # 0.1 Baso # 0.03 PT INR APTT Sodium Potassium Chloride Carbon Dioxide Anion Gap BUN Creatinine Est GFR ( Amer) Est GFR (Non-Af Amer) Random Glucose Calcium Total Bilirubin AST ALT Alkaline Phosphatase Total Protein Albumin Globulin Albumin/Globulin Ratio Amylase Lipase Urine Color Urine Appearance Urine pH Ur Specific [place] Urine Protein Urine Glucose (UA) Urine Ketones Urine Blood Urine Nitrate Urine Bilirubin Urine Urobilinogen Ur Leukocyte Esterase Urine RBC Urine WBC Ur Epithelial Cells Urine Bacteria Urine HCG, Qual Attending/Attestation - Attestation I have personally seen and examined this patient.: Yes I have fully participated in the care of the patient.: Yes I have reviewed all pertinent clinical information: Yes Notes (Text): 02/15/17 22:42 Patient was seen when she was in . This 26 year old with history of bronchial asthma,obesity, sickle cell trait , occasional alcohol user, is S/P laparoscopic cholecystectomy. Agree with history, physical examination , assessment and plan.
[2017-02-15] MEDS ORDERED: Pneumococcal 23-Valent Vaccine IM ONE (22:18)
[2017-02-16] MEDS ORDERED: Pantoprazole 40 mg EC Tab PO SCH (06:30)
[2017-02-16 06:59] VITALS: BP 118/80; PULSE 56
--- NOTE | 2017-02-16 07:32 | CP.PCM.PN ---
<Elly Collado - Last Filed: 02/16/17 07:29> Subjective - Date & Time of Evaluation Date of Evaluation: 02/16/17 Time of Evaluation: 07:10 - Subjective Subjective: General Surgery Dr. Kurtz Pt S&E @bedside. BOSSMANO. pt had lap samson yesterday. surgery was uncomplicated and pt tolerated procedure well. pt has no complaints this AM. denies F/C, N/V. pain well controlled. tolerating CLD. Objective - Vital Signs/Intake and Output Vital Signs (last 24 hours): Temp Pulse Resp BP Pulse Ox 98 F 56 L 18 118/80 99 02/16/17 06:57 02/16/17 06:57 02/16/17 06:57 02/16/17 06:57 02/15/17 20:10 Intake and Output: 02/16/17 02/16/17 06:59 18:59 Intake Total 120 Balance 120 - Medications Medications: Current Medications Acetaminophen (Tylenol 325mg Tab) 650 mg PO Q6H PRN PRN Reason: Pain, Mild (1-3) Heparin Sodium (Porcine) (Heparin) 5,000 units SC Q12 MARY LOU PRN Reason: Protocol Levalbuterol HCl (Xopenex) 0.63 mg IH [id number] PRN PRN Reason: Shortness of Breath Metoclopramide HCl (Reglan) 10 mg IV ONCE PRN PRN Reason: Nausea/Vomiting Morphine Sulfate (Morphine) 2 mg IVP Q15M PRN PRN Reason: Pain, moderate (4-7) Last Admin: 02/16/17 05:31 Dose: 2 mg Ondansetron HCl (Zofran Inj) 4 mg IVP ONCE PRN PRN Reason: Nausea/Vomiting Oxycodone/Acetaminophen (Percocet 5/325 Mg Tab) 1 tab PO Q4H PRN PRN Reason: Pain, moderate (4-7) Stop: 02/18/17 18:17 Last Admin: 02/15/17 19:10 Dose: 1 tab Pantoprazole Sodium (Protonix Ec Tab) 40 mg PO 0630 MARY LOU Last Admin: 02/16/17 05:34 Dose: 40 mg - Labs Labs: 02/15/17 04:30 02/15/17 04:30 PT 10.7 Seconds (9.9-11.8) 02/15/17 04:30 INR 0.99 (0.93-1.08) 02/15/17 04:30 APTT 26.3 Seconds (23.7-30.8) 02/15/17 04:30 - Constitutional Appears: Non-toxic, No Acute Distress - Head Exam Head Exam: NORMAL INSPECTION - Eye Exam Eye Exam: Normal appearance - ENT Exam ENT Exam: Mucous Membranes Moist - Respiratory Exam Respiratory Exam: NORMAL BREATHING PATTERN. absent: Accessory Muscle Use, Respiratory Distress - Cardiovascular Exam Cardiovascular Exam: absent: Bradycardia, Tachycardia - GI/Abdominal Exam GI & Abdominal Exam: Soft, Tenderness (remi-incisional TTP). absent: Guarding, Rebound Additional comments: incisions c/d/i - Extremities Exam Extremities Exam: Normal Inspection - Neurological Exam Neurological Exam: Alert, Awake, Oriented x3 - Psychiatric Exam Psychiatric exam: Normal Affect, Normal Mood - Skin Skin Exam: Dry, Intact, Normal Color, Warm Assessment and Plan - Assessment and Plan (Free Text) Assessment: 26 y/o F POD#1 s/p Laparoscopic cholecystectomy. - advance diet as tolerated - PO pain management - cleared discharge if tolerating regular diet. - F/u w/ Dr. Kurtz in 1 weeks - wound care discussed w/ pt Pt discussed w/ Dr. Tessie Collado DO PGY1 <Darrin Kutrz - Last Filed: 02/21/17 12:45> Objective - Vital Signs/Intake and Output Vital Signs (last 24 hours): Temp Pulse Resp BP Pulse Ox 98.8 F 56 L 19 118/80 97 02/16/17 12:12 02/16/17 12:12 02/16/17 12:12 02/16/17 12:12 02/16/17 12:12 - Labs Labs: 02/16/17 07:45 02/16/17 07:45 PT 10.7 Seconds (9.9-11.8) 02/15/17 04:30 INR 0.99 (0.93-1.08) 02/15/17 04:30 APTT 26.8 Seconds (23.7-30.8) 02/16/17 07:45 Assessment and Plan - Assessment and Plan (Free Text) Assessment: Patient was seen and examined by me. I agree with assessment and plan as per resident's note.
[2017-02-16 07:51] LABS: ADD MANUAL DIFF? NO
[2017-02-16 07:59] LABS: BASO # 0.02 K/mm3 (0.0-2.0); BASO % 0.3 % (0.0-3.0); EOS % 0.1 % (1.5-5.0); GRAN # 4.69 (1.4-6.5); GRAN % 65.4 % (50.0-68.0); HEMATOCRIT 29.3 % (36.0-48.0); LYMPH % 28.5 % (22.0-35.0); MEAN CORPUSCULAR HEMOGLOBIN 21.4 pg (25.0-35.0); MEAN CORPUSCULAR HGB CONC 33.4 g/dl (31.0-37.0); MEAN PLATELET VOLUME 9.8 fl (7.0-11.0); MONO # 0.4 (0.1-0.6); MONO % 5.7 % (1.0-6.0); PLATELET COUNT 219 10^3/uL (120.0-450.0); RED CELL DISTRIBUTION WIDTH 15.3 % (11.5-14.5); WHITE BLOOD COUNT 7.2 10^3/ul (4.5-11.0)
[2017-02-16 08:09] LABS: ALB/GLOB RATIO 0.9 (1.1-1.8); ALKALINE PHOSPHATASE 91 U/L (38-133); ALT/SGPT 96 U/L (7-56); AST/SGOT 75 U/L (15-39); BILIRUBIN,TOTAL 0.5 mg/dL (0.2-1.3); BLOOD UREA NITROGEN 8 mg/dL (7-21); CALCIUM 8.7 mg/dL (8.4-10.5); CARBON DIOXIDE 23 mmol/L (21-33); CHLORIDE 107 mmol/L (98-107); GFR AFRICAN-AMERICAN > 60; GLUCOSE,RANDOM 88 mg/dL (70-110); POTASSIUM 3.8 mmol/L (3.6-5.0); SODIUM 137 mmol/L (132-148); TOTAL PROTEIN 6.8 g/dL (5.8-8.3)
[2017-02-16 12:12] VITALS: RESP 19; TEMP 98.8; O2SAT 97
--- NOTE | 2017-02-16 13:13 | CP.PCM.DIS ---
<Christy Jesus - Last Filed: 02/16/17 13:53> Provider - Provider Attending physician: Darrin Kurtz MD Primary care physician: unknown Consults: surgery: Dr. Kurtz Time Spent in preparation of Discharge (in minutes): 35 Hospital Course - Lab Results Lab Results: Most Recent Lab Values WBC 7.2 10^3/ul (4.5-11.0) 02/16/17 07:45 RBC 4.58 10^6/uL (3.5-6.1) 02/16/17 07:45 Hgb 9.8 gm/dL (12.0-16.0) L 02/16/17 07:45 Hct 29.3 % (36.0-48.0) L 02/16/17 07:45 MCV 64.0 fL (80.0-105.0) L 02/16/17 07:45 MCH 21.4 pg (25.0-35.0) L 02/16/17 07:45 MCHC 33.4 g/dl (31.0-37.0) 02/16/17 07:45 RDW 15.3 % (11.5-14.5) H 02/16/17 07:45 Plt Count 219 10^3/uL (120.0-450.0) 02/16/17 07:45 MPV 9.8 fl (7.0-11.0) 02/16/17 07:45 Gran % 65.4 % (50.0-68.0) 02/16/17 07:45 Lymph % (Auto) 28.5 % (22.0-35.0) 02/16/17 07:45 [place] % (Auto) 5.7 % (1.0-6.0) 02/16/17 07:45 Eos % (Auto) 0.1 % (1.5-5.0) L 02/16/17 07:45 Baso % (Auto) 0.3 % (0.0-3.0) 02/16/17 07:45 Gran # 4.69 (1.4-6.5) 02/16/17 07:45 Lymph # 2.0 (1.2-3.4) 02/16/17 07:45 [place] # 0.4 (0.1-0.6) 02/16/17 07:45 Eos # 0.0 (0.0-0.7) 02/16/17 07:45 Baso # 0.02 K/mm3 (0.0-2.0) 02/16/17 07:45 PT 10.7 Seconds (9.9-11.8) 02/15/17 04:30 INR 0.99 (0.93-1.08) 02/15/17 04:30 APTT 26.8 Seconds (23.7-30.8) 02/16/17 07:45 Sodium 137 mmol/L (132-148) 02/16/17 07:45 Potassium 3.8 mmol/L (3.6-5.0) 02/16/17 07:45 Chloride 107 mmol/L (98-107) 02/16/17 07:45 Carbon Dioxide 23 mmol/L (21-33) 02/16/17 07:45 Anion Gap 11 (10-20) 02/16/17 07:45 BUN 8 mg/dL (7-21) 02/16/17 07:45 Creatinine 0.7 mg/dL (0.5-1.4) 02/16/17 07:45 Est GFR ( Amer) > 60 02/16/17 07:45 Est GFR (Non-Af Amer) > 60 02/16/17 07:45 Random Glucose 88 mg/dL (70-110) 02/16/17 07:45 Calcium 8.7 mg/dL (8.4-10.5) 02/16/17 07:45 Total Bilirubin 0.5 mg/dL (0.2-1.3) 02/16/17 07:45 AST 75 U/L (15-39) H 02/16/17 07:45 ALT 96 U/L (7-56) H 02/16/17 07:45 Alkaline Phosphatase 91 U/L (38-133) 02/16/17 07:45 Total Protein 6.8 g/dL (5.8-8.3) 02/16/17 07:45 Albumin 3.2 g/dL (3.0-4.8) 02/16/17 07:45 Globulin 3.6 gm/dL 02/16/17 07:45 Albumin/Globulin Ratio 0.9 (1.1-1.8) L 02/16/17 07:45 Amylase 162 U/L (35-125) H 02/15/17 04:30 Lipase 72 U/L (23-300) 02/15/17 04:30 Urine Color Yellow (YELLOW) 02/15/17 03:40 Urine Appearance Sl cloudy (CLEAR) 02/15/17 03:40 Urine pH 5.5 (4.7-8.0) 02/15/17 03:40 Ur Specific [place] >= 1.030 (1.005-1.035) 02/15/17 03:40 Urine Protein 30 mg/dL (<30 mg/dL) H 02/15/17 03:40 Urine Glucose (UA) Negative mg/dL (NEGATIVE) 02/15/17 03:40 Urine Ketones Negative mg/dL (NEGATIVE) 02/15/17 03:40 Urine Blood Moderate (NEGATIVE) H 02/15/17 03:40 Urine Nitrate Negative (NEGATIVE) 02/15/17 03:40 Urine Bilirubin Negative (NEGATIVE) 02/15/17 03:40 Urine Urobilinogen 0.2 E.U./dL (<1 E.U./dL) 02/15/17 03:40 Ur Leukocyte Esterase Negative Nick/uL (NEGATIVE) 02/15/17 03:40 Urine RBC 5 - 10 /hpf (0-2) 02/15/17 03:40 Urine WBC 0 - 2 /hpf (0-6) 02/15/17 03:40 Ur Epithelial Cells 1 - 3 /hpf (0-5) 02/15/17 03:40 Urine Bacteria Mod (NEG) 02/15/17 03:40 Urine HCG, Qual Negative (NEGATIVE) 02/15/17 03:40 - Hospital Course Hospital Course: 26 year old -[place] F with a PMHx of asthma who presented to the ED one day ago with complaints of RUQ and mid-epigastric abdominal pain, pain in her back, nausea, and 4 episodes of vomiting that began yesterday. U/S showed gallstone in neck of gallbladder and HIDA consistent with cystic duct obstruction. Pt underwent laproscopic cholesystectomy in PM of same day. On floor, Xopenex PRN administered for asthma. Pt received IV hydration and advancement of diet, which patient tolerated, so D/C in stable condition with instructions to f/u with primary care, given rx of PRN zofran. Instructed to take over the counter medications for any associated pain. Discharge Exam - Head Exam Head Exam: ATRAUMATIC, NORMAL INSPECTION - Eye Exam Eye Exam: EOMI, Normal appearance - ENT Exam ENT Exam: Mucous Membranes Moist, Normal Exam - Respiratory Exam Respiratory Exam: NORMAL BREATHING PATTERN, UNREMARKABLE - Cardiovascular Exam Cardiovascular Exam: +S1, +S2. absent: Tachycardia - GI/Abdominal Exam GI & Abdominal Exam: Soft, Tenderness Additional comments: RUQ tenderness - Exam External exam: absent: Ecchymosis, Erythema - Extremities Exam Extremities exam: normal capillary refill, pedal pulses present - Neurological Exam Neurological exam: Alert, Oriented x3 - Skin Skin Exam: Intact, Normal Color Discharge Plan - Discharge Medications Prescriptions: Albuterol HFA [Ventolin HFA 90 mcg/actuation (8 g)] 1 puff IH Q6 PRN #1 inhaler PRN Reason: Shortness Of Breath Ondansetron HCl [Zofran] 4 mg PO Q4 PRN #10 tablet PRN Reason: Nausea/Vomiting - Follow Up Plan Condition: STABLE Disposition: HOME/ ROUTINE Instructions: Cholecystitis (DC), Cholecystitis (GEN) Additional Instructions: You are discharged home. Please return to emergency department for worsening of symptoms. Please visit your primary doctor (of choice) within one week for follow-up care. Please take new medication of zofran for nausea as needed. Please take over the counter acetaminophen or naproxen for pain control if needed. Please follow-up with Dr. Kurtz within one week. Referrals: Darrin Kurtz MD [Staff Provider] - <Shyam ROWAN,[facility] - Last Filed: 02/16/17 14:41> Provider - Provider Attending physician: Darrin Kurtz MD Hospital Course - Lab Results Lab Results: Most Recent Lab Values WBC 7.2 10^3/ul (4.5-11.0) 02/16/17 07:45 RBC 4.58 10^6/uL (3.5-6.1) 02/16/17 07:45 Hgb 9.8 gm/dL (12.0-16.0) L 02/16/17 07:45 Hct 29.3 % (36.0-48.0) L 02/16/17 07:45 MCV 64.0 fL (80.0-105.0) L 02/16/17 07:45 MCH 21.4 pg (25.0-35.0) L 02/16/17 07:45 MCHC 33.4 g/dl (31.0-37.0) 02/16/17 07:45 RDW 15.3 % (11.5-14.5) H 02/16/17 07:45 Plt Count 219 10^3/uL (120.0-450.0) 02/16/17 07:45 MPV 9.8 fl (7.0-11.0) 02/16/17 07:45 Gran % 65.4 % (50.0-68.0) 02/16/17 07:45 Lymph % (Auto) 28.5 % (22.0-35.0) 02/16/17 07:45 [place] % (Auto) 5.7 % (1.0-6.0) 02/16/17 07:45 Eos % (Auto) 0.1 % (1.5-5.0) L 02/16/17 07:45 Baso % (Auto) 0.3 % (0.0-3.0) 02/16/17 07:45 Gran # 4.69 (1.4-6.5) 02/16/17 07:45 Lymph # 2.0 (1.2-3.4) 02/16/17 07:45 [place] # 0.4 (0.1-0.6) 02/16/17 07:45 Eos # 0.0 (0.0-0.7) 02/16/17 07:45 Baso # 0.02 K/mm3 (0.0-2.0) 02/16/17 07:45 PT 10.7 Seconds (9.9-11.8) 02/15/17 04:30 INR 0.99 (0.93-1.08) 02/15/17 04:30 APTT 26.8 Seconds (23.7-30.8) 02/16/17 07:45 Sodium 137 mmol/L (132-148) 02/16/17 07:45 Potassium 3.8 mmol/L (3.6-5.0) 02/16/17 07:45 Chloride 107 mmol/L (98-107) 02/16/17 07:45 Carbon Dioxide 23 mmol/L (21-33) 02/16/17 07:45 Anion Gap 11 (10-20) 02/16/17 07:45 BUN 8 mg/dL (7-21) 02/16/17 07:45 Creatinine 0.7 mg/dL (0.5-1.4) 02/16/17 07:45 Est GFR ( Amer) > 60 02/16/17 07:45 Est GFR (Non-Af Amer) > 60 02/16/17 07:45 Random Glucose 88 mg/dL (70-110) 02/16/17 07:45 Calcium 8.7 mg/dL (8.4-10.5) 02/16/17 07:45 Total Bilirubin 0.5 mg/dL (0.2-1.3) 02/16/17 07:45 AST 75 U/L (15-39) H 02/16/17 07:45 ALT 96 U/L (7-56) H 02/16/17 07:45 Alkaline Phosphatase 91 U/L (38-133) 02/16/17 07:45 Total Protein 6.8 g/dL (5.8-8.3) 02/16/17 07:45 Albumin 3.2 g/dL (3.0-4.8) 02/16/17 07:45 Globulin 3.6 gm/dL 02/16/17 07:45 Albumin/Globulin Ratio 0.9 (1.1-1.8) L 02/16/17 07:45 Amylase 162 U/L (35-125) H 02/15/17 04:30 Lipase 72 U/L (23-300) 02/15/17 04:30 Urine Color Yellow (YELLOW) 02/15/17 03:40 Urine Appearance Sl cloudy (CLEAR) 02/15/17 03:40 Urine pH 5.5 (4.7-8.0) 02/15/17 03:40 Ur Specific [place] >= 1.030 (1.005-1.035) 02/15/17 03:40 Urine Protein 30 mg/dL (<30 mg/dL) H 02/15/17 03:40 Urine Glucose (UA) Negative mg/dL (NEGATIVE) 02/15/17 03:40 Urine Ketones Negative mg/dL (NEGATIVE) 02/15/17 03:40 Urine Blood Moderate (NEGATIVE) H 02/15/17 03:40 Urine Nitrate Negative (NEGATIVE) 02/15/17 03:40 Urine Bilirubin Negative (NEGATIVE) 02/15/17 03:40 Urine Urobilinogen 0.2 E.U./dL (<1 E.U./dL) 02/15/17 03:40 Ur Leukocyte Esterase Negative Nick/uL (NEGATIVE) 02/15/17 03:40 Urine RBC 5 - 10 /hpf (0-2) 02/15/17 03:40 Urine WBC 0 - 2 /hpf (0-6) 02/15/17 03:40 Ur Epithelial Cells 1 - 3 /hpf (0-5) 02/15/17 03:40 Urine Bacteria Mod (NEG) 02/15/17 03:40 Urine HCG, Qual Negative (NEGATIVE) 02/15/17 03:40 Attending/Attestation - Attestation I have personally seen and examined this patient.: Yes I have fully participated in the care of the patient.: Yes I have reviewed all pertinent clinical information, including history, physical exam and plan: Yes Notes (Text): Patient was seen and examined with medical staffing coordinator .Agreed with resident assessment and plan. 26 year old -[place] F with PMH of Obesity, Asthma was admitted with abdominal pain found to have cholithiasis, HIDA scan was positive.Patient underwent laproscopic cholycystectomy yesterday, patient remain stable over night, she is tolerating diet today, abdominal pain has improved.She is ambulatory,cleared by surgery for discharge.Patient will be discharged home and will follow up with surgery as out patient. Management plan was discussed in detail with patient Education was provided.
--- NOTE | 2017-02-18 09:44 | RAD ---
PROCEDURE: Operative cholangiogram HISTORY: ? CBD OBST COMPARISON: TECHNIQUE: Fluoroscopy was provided in the operating room. 52 seconds of fluoroscopy time was used. Three images were submitted FINDINGS: The common duct is normal in appearance with no filling defects. Contrast flows into the duodenum without obstruction IMPRESSION: As above
== END 2017-02-16 14:02 | disposition home or self-care (01) ==
LOC: ED 03:42 → EROBSV 03:50 → UNDOADMOB 03:50 → SDS 15:09 → 3RNO 19:43 → SDS 02-16 14:02
PROVIDERS: ATTEND General Practice
DX: K80.13 Calculus of gallbladder with acute and chronic cholecystitis with obstruction (principal); R11.2 Nausea with vomiting, unspecified; K52.9 Noninfective gastroenteritis and colitis, unspecified; J45.909 Unspecified asthma, uncomplicated; E66.9 Obesity, unspecified; Z68.32 Body mass index [BMI] 32.0-32.9, adult; D57.3 Sickle-cell trait
CPT/HCPCS: 36415; 47563; 74176; 74300; 76700; 78227; 80053 ×2; 81001; 82150; 83690; 84703; 85025 ×2; 85610; 85730 ×2; 88304; 94640; 96361; 96365; 96375; 96376; 99285; A9537; J0690; J0696; J1170; J1644; J1885; J2001; J2250; J2270 ×3; J2405; J2704; J2710; J2765; J3010; J7040; J7120; Q9966